=== PATIENT | female | born 1950 | race Caucasian/White ===

== ENCOUNTER 2021-12-20 14:37 | Emergency (ER) | payer MEDICARE, BC ==
[~2021-12-20] VITALS: Ht 152.4 cm; Wt 68.0 kg
--- NOTE | 2021-12-20 14:50 | NUR ---
RECEIVED PT 71 YRS FEMAL FROM HOME CAME BY PRAMDIC S/P TRIP AND FELL DOWN TODAY AROUND 1 PM c/o pain on lt arm ( wirst) andlt leg and knee and hip SKIN WARM AND DRY TOUCH
--- NOTE | 2021-12-20 15:13 | NUR ---
wating to be seen by provider
--- NOTE | 2021-12-20 15:44 | NUR ---
SEEN BY DR. EATON
--- NOTE | 2021-12-20 15:51 | NUR ---
FRANSISCO (SON) AT BED SIDE
--- NOTE | 2021-12-20 16:13 | NUR ---
X-RAY DONE AT BED SIDE IN LT UPPER AND LOWER EXTRAMITY
--- NOTE | 2021-12-20 16:30 | NUR ---
MOVE SHEET SUBMITTED.
--- NOTE | 2021-12-20 16:40 | NUR ---
CONTACTED [facility] FOR CONSULT AWAITING CALL BACK.
[2021-12-20] MEDS ORDERED: CLOP75TA15 PO (16:42)
[2021-12-20] MEDS ORDERED: METO25TA4 PO (16:42)
[2021-12-20] MEDS ORDERED: ROSU20TA32 PO (16:42)
[2021-12-20] MEDS ORDERED: ASPI-1169 PO (16:42)
--- NOTE | 2021-12-20 16:50 | NUR ---
EKG DONE AT BED SIDE
--- NOTE | 2021-12-20 16:52 | NUR ---
CONTACTED DR. KIDD AWAITING CALL BACK.
--- NOTE | 2021-12-20 16:56 | NUR ---
COVED SWAB SENT TO LAB
--- NOTE | 2021-12-20 16:58 | NUR ---
DR. KIDD CALLED REQUESTING [facility] TO BE THE HOSPITALIST FOR ADMISSION.
--- NOTE | 2021-12-20 17:02 | NUR ---
BLOOD DROW AT BEDE SIDE
[2021-12-20 17:07] LABS: BASOPHILS % (AUTO) 0.2 % (0.0-2.0); EOSINOPHILS % (AUTO) 0.2 % (0.0-6.0); HEMATOCRIT 45 % (39-51); HEMOGLOBIN 14.5 g/dL (13.5-17.5); LYMPHOCYTES # (AUTO) 1.3 K/uL (0.8-4.8); LYMPHOCYTES % (AUTO) 11.5 % (20.0-44.0); MEAN CORPUSCULAR HGB CONC 33 g/dl (31.0-36.0); MEAN CORPUSCULAR VOLUME 92 fL (80-96); MONOCYTES # (AUTO) 0.5 K/uL (0.1-1.30); MONOCYTES % (AUTO) 4.5 % (2.0-12.0); NEUTROPHILS # (AUTO) 9.3 K/uL (1.8-8.9); NEUTROPHILS % (AUTO) 83.6 % (43.0-81.0); PLATELET COUNT (AUTO) 214 K/uL (150-450); RED BLOOD CELL COUNT(AUTO) 4.84 MIL/uL (4.5-6.0); WHITE BLOOD COUNT (AUTO) 11.2 K/uL (4.3-11.0)
[2021-12-20 17:20] LABS: CALCIUM, SERUM 8.6 mg/dL (8.5-10.1); CARBON DIOXIDE 29 mmol/L (21-32); CHLORIDE 103 mmol/L (98-107); GLUCOSE 106 mg/dL (74-106); POTASSIUM 3.8 mmol/L (3.5-5.1); SODIUM SERUM 137 mmol/L (136-145)
[2021-12-20 17:21] LABS: CREATININE 0.8 mg/dL (0.6-1.3); UREA NITROGEN, BLOOD 20 mg/dL (7-18)
--- NOTE | 2021-12-20 17:39 | NUR ---
SEEN BY PROVIDER (HOSPTALIST ) ROCIO
[2021-12-20] MEDS ORDERED: MAG HYDROX/AL HYDROX/SIMETH 30 ML UDC PO PRN (18:00)
[2021-12-20] MEDS ORDERED: ACETAMINOPHEN 325 MG TABLET PO PRN (18:00)
[2021-12-20] MEDS ORDERED: MORPHINE SULFATE INJ 2 MG/ML DISP.SYRIN IV PRN (18:00)
[2021-12-20] MEDS ORDERED: LORAZEPAM INJ 2 MG/ML VIAL IV PRN (18:00)
[2021-12-20] MEDS ORDERED: TEMAZEPAM 15 MG CAPSULE PO PRN (18:00)
[2021-12-20] MEDS ORDERED: ONDANSETRON HCL/PF 4 MG/2 ML VIAL IVP PRN (18:00)
[2021-12-20] MEDS ORDERED: HYDROCODONE/APAP 5/325MG TABLET PO PRN (18:00)
[2021-12-20] MEDS ORDERED: IV D5/0.45 NACL 1,000 ML IV PRN (18:00)
[2021-12-20] MEDS ORDERED: Z GUARD REMEDY 4 OZ OINT TP PRN (18:00)
--- NOTE | 2021-12-20 18:07 | NUR ---
CALLED DR. LUJAN, NO ANSWER, VOICEMAIL NOT AVAILABLE. SENT A TEXT MESSAGE.
--- NOTE | 2021-12-20 18:39 | NUR ---
CONTACTED [facility] [phone] FAXING FACE SHEET AND CLINICALS TO [phone] AWAITING ACCEPTANCE FROM HOSPITALIST
[2021-12-20] MEDS ORDERED: MORPHINE SULFATE INJ 4 MG/ML DISP.SYRIN ONE (18:51)
[2021-12-20] MEDS ORDERED: MORPHINE SULFATE INJ 2 MG/ML DISP.SYRIN IV ONE (19:00)
--- NOTE | 2021-12-20 19:00 | NUR ---
INSERTED FOLY CATH FR # 16 NO DIFFECLTY URINE CLEAR YELLOW COLOR UA SENT TO LAB
--- NOTE | 2021-12-20 19:31 | NUR ---
HAND OFF CHERI YOUSSEF
--- NOTE | 2021-12-20 19:34 | NUR ---
CALLED [facility] [phone] DR. MONICA RIDER ACCEPTED PT AND NOW WORKING ON GETTING AN AVAILABLE BED. THEY HAVE CLINICALS NOW.
--- NOTE | 2021-12-20 20:32 | NUR ---
FOLLOWED UP WITH [facility] TO CHECK STATUS OF BED. STILL NO BED AVAILABLE.
--- NOTE | 2021-12-20 21:10 | NUR ---
F/U WITH [facility], PT ACCEPTED, JUST NO BEDS AVAILABLE
--- NOTE | 2021-12-20 21:17 | NUR ---
PER DAUGHTER, THEY WILL GO AMA
[2021-12-20 21:30] VITALS: BP 141/85
--- NOTE | 2021-12-20 21:43 | NUR ---
Pt assisted to private car, IV and F/C removed per policy. Pt left in stable condition
--- NOTE | 2021-12-20 21:43 | NUR ---
Patient does not wish to proceed with medical care recommended by Dr. Dinh. Patient given information related to possible complications, up to and including , which could occur as a result of leaving the hospital at this time. Patient verbalizes understanding of risks involved due to leaving against medical advice. Patient has signed AMA form.
[2021-12-21] MEDS ORDERED: PANTOPRAZOLE 40 MG VIAL IV SCH (09:00)
[2021-12-21] MEDS ORDERED: ENOXAPARIN SODIUM 40 MG/0.4 ML DISP.SYRIN SQ SCH (09:00)
== END 2021-12-20 21:45 | disposition left against medical advice (07) ==
LOC: EDSEX 15:02 → ER 15:02
DX: S72.032A Displaced midcervical fracture of left femur, initial encounter for closed fracture (principal); W01.0XXA Fall on same level from slipping, tripping and stumbling without subsequent striking against object, initial encounter; Y92.89 Other specified places as the place of occurrence of the external cause; E66.9 Obesity, unspecified; Z68.29 Body mass index [BMI] 29.0-29.9, adult; Z20.822 Contact with and (suspected) exposure to COVID-19; Z53.29 Procedure and treatment not carried out because of patient's decision for other reasons; E78.5 Hyperlipidemia, unspecified; I25.10 Atherosclerotic heart disease of native coronary artery without angina pectoris; Z95.5 Presence of coronary angioplasty implant and graft; I10 Essential (primary) hypertension; M25.532 Pain in left wrist; S50.312A Abrasion of left elbow, initial encounter; I25.2 Old myocardial infarction; Z79.02 Long term (current) use of antithrombotics/antiplatelets; Z79.899 Other long term (current) drug therapy; R79.89 Other specified abnormal findings of blood chemistry
CPT/HCPCS: 99291; 96374; 87426; 93005; 71045; 73080; 73090; 73503; 73110; 85025; 80048; 36415; 85730; J2270; 73502; C9803